=== PATIENT | male | born 1965 | race Two or more races ===

== ENCOUNTER 2023-09-14 04:54 | Emergency (ER) | payer OTHER ==
[~2023-09-14] VITALS: Ht 188 cm; Wt 121.4 kg
[2023-09-14] MEDS: ONDANSETRON HCL 4 MG/2 ML VIAL IV ONE (05:44)
[2023-09-14] MEDS: MORPHINE SULFATE 4 MG/ML SYR/VIAL IV ONE (05:45)
[2023-09-14 06:01] LABS: Alanine Aminotransferase 31 U/L (7-40); Albumin 4.3 g/dL (3.2-4.8); Alkaline Phosphatase 78 U/L (46-116); Anion Gap 10 (5-15); Aspartate Aminotransferase 20 U/L (13-40); BUN/Creatinine Ratio 17.5 (10.0-20.0); Bilirubin, Total 0.6 mg/dL (0.2-1.0); Blood Urea Nitrogen 18 mg/dL (9-23); Calcium 9.5 mg/dL (8.7-10.4); Carbon Dioxide 24 mmol/L (20-30); Chloride 103 mmol/L (98-107); Glucose 165 mg/dL (74-106); Lipase 38 U/L (12-53); Potassium 3.8 mmol/L (3.5-5.1); Sodium 137 mmol/L (136-145)
[2023-09-14 06:02] LABS: Basophils # (auto) 0.1 10 ^3/uL (0-0.2); Eosinophils # (auto) 0.1 10 ^3/uL (0-0.8); Total Protein 7.1 g/dL (5.7-8.2); White Blood Cell 8.9 10^3/uL (4.4-10.8)
[2023-09-14 06:04] LABS: Basophils % (auto) 0.7 % (0.0-2.0); Eosinophils % (auto) 1.4 % (0.0-7.0); Hematocrit 45.6 % (41.0-53.0); Hemoglobin 15.8 g/dL (13.5-17.5); Lymphocytes # (auto) 2.8 10 ^3/uL (0.4-5.4); Lymphocytes % (auto) 30.9 % (10.0-50.0); Mean Corpuscular Hgb Conc. 34.7 g/dL (32.0-36.0); Mean Corpuscular Volume 97.9 fL (80.0-100.0); Monocytes # (auto) 0.9 10 ^3/uL (0-1.3); Monocytes % (auto) 10.1 % (0.0-12.0); Neutrophils # (auto) 5.1 10 ^3/uL (1.6-8.6); Neutrophils % (auto) 56.9 % (37.0-80.0); Red Blood Cells 4.66 10^6/uL (4.5-5.90); Red Cell Distribution Width 12.5 % (11.8-14.3)
[2023-09-14 06:14] VITALS: PULSE 100; RESP 13; O2SAT 91
[2023-09-14] MEDS: IOHEXOL 350 MG/ML 100ML IJ ONE (06:25)
[2023-09-14] MEDS: PROCHLORPERAZINE EDISYLATE 5 MG/ML 2ML VIAL IV ONE (06:45)
[2023-09-14] MEDS: HYDROmorphone HCL 2 MG/ML VL/or syr IV ONE (06:46)
[2023-09-14 12:22] VITALS: BP 174/97; PULSE 88; RESP 18; TEMP 98; O2SAT 95
[2023-09-14] MEDS: HYDROcodone-ACET 10/325MG TAB PO ONE (12:45)
== END 2023-09-14 12:31 | disposition short-term general hospital (02) ==
LOC: ER 04:54
DX: K80.20 Calculus of gallbladder without cholecystitis without obstruction (principal); R10.13 Epigastric pain; E78.5 Hyperlipidemia, unspecified
CPT/HCPCS: 36415; 71045; 71260; 74177; 76705; 80053; 83690; 84484; 85025; 85379; 96374; 96375; 99285; J0780; J1170; J2270; J2405; Q9967